=== PATIENT | female | born 1995 | race Caucasian/White ===

== ENCOUNTER 2017-06-01 18:45 | Emergency (ER) | payer BC ==
[~2017-06-01] VITALS: Ht 165.1 cm; Wt 59.0 kg
[2017-06-01] MEDS ORDERED: [UNRECOGNIZED DRUG - OTHER] PO (19:09)
[2017-06-01] MEDS ORDERED: ADDERALL 10 MG10 MG PO (19:09)
[2017-06-01 19:12] LABS: URINE BLOOD NEGATIVE (Negative); URINE COLOR YELLOW; URINE GLUCOSE-RANDOM* NEGATIVE (Negative); URINE KETONES 2+ (Negative); URINE NITRITE NEGATIVE (Negative); URINE PROTEIN (DIPSTICK) NEGATIVE (Negative); URINE SPECIFIC GRAVITY >= 1.030 (1.005-1.035); URINE UROBILINOGEN 0.2 E.U./dl (0.2-1.0)
[2017-06-01 19:13] LABS: HEMATOCRIT 40.5 % (37.0-47.0); HEMOGLOBIN 13.6 gm/dL (12.0-15.0); MCH 28.9 pg (26.0-34.0); MCHC 33.7 g/dL (28.0-37.0); MCV 85.6 fL (80.0-100.0); PLATELET COUNT 282 thou/uL (150-400); RBC 4.73 mil/uL (4.20-5.00); RDW 14.4 % (10.5-14.5); URINE BILIRUBIN NEGATIVE (Negative)
[2017-06-01 19:20] LABS: MANUAL DIFF YES
[2017-06-01 19:26] LABS: POTASSIUM 3.8 mmol/L (3.5-5.1)
[2017-06-01 19:31] LABS: ALBUMIN 3.6 g/dL (3.4-5.0); TOTAL BILIRUBIN 0.4 mg/dL (<0.1-1.0); TOTAL PROTEIN 7.8 g/dL (6.4-8.2)
[2017-06-01 19:46] LABS: ABSOLUTE NEUTROPHILS 8.9 thou/uL (1.4-8.2); TOTAL CELL COUNT 100
[2017-06-01] MEDS ORDERED: ONDANSETRON HCL4 M2 PO (23:10)
[2017-06-01] MEDS ORDERED: LEVSIN0.125 MG PO (23:10)
[2017-06-01] MEDS ORDERED: HYDROCODONE-AP1 EAC6 PO (23:10)
[2017-06-01 23:14] VITALS: BP 96/57
== END 2017-06-01 23:15 | disposition home or self-care (01) ==
LOC: ER 18:45
PROVIDERS: Physician Assistant
DX: N83.201 Unspecified ovarian cyst, right side (principal); R19.7 Diarrhea, unspecified

== ENCOUNTER → 2020-02-25 | Outpatient (CLI) | payer BC ==
[~2020-02-25] MED LIST: ADDERALL 10 MG10 MG PO; HYDROCODONE-AP1 EAC6 PO; LEVSIN0.125 MG PO; ONDANSETRON HCL4 M2 PO; [UNRECOGNIZED DRUG - OTHER] PO
== END ==
LOC: LAB 12:46
PROVIDERS: ATTEND Neuromusculoskeletal Medicine & OMM
DX: R50.9 Fever, unspecified (principal); J02.9 Acute pharyngitis, unspecified; M79.10 Myalgia, unspecified site; Z20.828 Contact with and (suspected) exposure to other viral communicable diseases